=== PATIENT | male | born 1990 | race Caucasian/White ===

== ENCOUNTER 2017-05-22 14:11 | Emergency (ER) | payer SELFPAY ==
[~2017-05-22] VITALS: Ht 165.1 cm; Wt 67.0 kg
[2017-05-22 14:18] VITALS: Ht 165.1 cm; Wt 67.0 kg
[2017-05-22] MEDS ORDERED: HYDROCODONE/APAP (5/325) TAB PO ONE (15:30)
--- NOTE | 2017-05-22 16:03 | RADRPT ---
PROCEDURE: XR Lumbar Spine. CLINICAL INDICATION: Lumbar spine pain. TECHNIQUE: AP, lateral, and cone-down lateral view of the lumbar spine were obtained. COMPARISON: No prior studies are available for comparison. FINDINGS: There is a mild right convex scoliosis of the thoracolumbar junction. The vertebral body heights an d marrow density are normal in appearance. There is preservation of the intervertebral disc spaces. There is no significant facet spondylosis. The neural foramina appear patent. The paraspinal sof t tissues unremarkable. The posterior elements are unremarkable. IMPRESSION: 1. Mild right convex scoliosis of the thoracolumbar junction. 2. No evidence of fracture or significant degenerative disc disease. RPTAT: HGAS .Andrew Morton MD, MD Date Time Electronically viewed and signed by .Andrew Morton MD, on 05/22/2017 16:03 .S/
--- NOTE | 2017-05-22 16:03 | RADRPT ---
PROCEDURE: XR Hip. CLINICAL INDICATION: Left hip pain. TECHNIQUE: AP and frog lateral views of the left hip were performed. COMPARISON: None available FINDINGS: There is normal appearance of the left hip joint without significant sclerosis or joint space narrow ing. The proximal left femur is normal in appearance. There is no evidence of fracture. The aceta bulum is intact. There is no significant osteopenia. The visualized sacrum is unremarkable. The s oft tissues are normal in appearance. IMPRESSION: 1. Normal radiographs of the left hip. No evidence of fracture or dislocation. RPTAT: HGAS .Andrew Morton MD, Date Time Electronically viewed and signed by .Andrew Morton MD, on 05/22/2017 16:03 .S/
--- NOTE | 2017-05-22 16:06 | RADRPT ---
PROCEDURE: XR Femur. CLINICAL INDICATION: Left femur pain. TECHNIQUE: AP and lateral views of the left femur were performed. The images were reviewed on a BRIKA workstation. COMPARISON: None available at the time of dictation. FINDINGS: There is normal osseous mineralization and alignment. No fracture or osseous lesion is identified. T here are normal joints without evidence of arthritis or dislocation. The soft tissues are unremarkab le. There are metallic keys project over the lateral left soft tissues, slightly limiting evaluation in this region. IMPRESSION: 1. Normal radiographs of the left femur. No evidence of fracture. RPTAT: HGAS .Andrew Morton MD, MD Date Time Electronically viewed and signed by .Andrew Morton MD, MD on 05/22/2017 16:05 .S/
--- NOTE | 2017-05-22 16:06 | RADRPT ---
PROCEDURE: XR Knee. CLINICAL INDICATION: Left knee pain. TECHNIQUE: AP, lateral and tunneled views of the left knee were obtained. The images reviewed on a PACS workstation. COMPARISON: None. FINDINGS: The distal femur and proximal tibia/fibula are normal in appearance. There is no fracture. The medi al and lateral compartment joint spaces are preserved. There is no abnormal calcification. There i s no joint effusion. Hoffa's fat pad is normal in appearance. There is normal appearance of the pa tellofemoral joint. The soft tissues are unremarkable. IMPRESSION: 1. Normal radiographs of the left knee. No evidence of fracture. RPTAT: HGAS .Andrew Morton MD, Date Time Electronically viewed and signed by .Andrew Morton MD, on 05/22/2017 16:06 .S/
--- NOTE | 2017-05-22 16:07 | RADRPT ---
PROCEDURE: XR Ankle. CLINICAL INDICATION: Left ankle pain. TECHNIQUE: AP, oblique and lateral views of the left ankle were performed. COMPARISON: None available FINDINGS: The distal tibia and fibula are normal in appearance. The ankle mortise is maintained. The lateral process of the talus is intact. There is no evidence of fracture. The talus and calcaneus are nor mal in appearance. There is no plantar tendon enthesiophyte. There is no joint effusion. There is mild soft tissue swelling over the lateral ankle. IMPRESSION: 1. Mild soft tissue swelling over the lateral ankle without evidence of underlying fracture. RPTAT: HGAS .Andrew Morton MD, MD Date Time Electronically viewed and signed by .Andrew Morton MD, on 05/22/2017 16:07 .S/
[2017-05-22] MEDS ORDERED: HYDR-906 PO (17:19)
[2017-05-22] MEDS ORDERED: IBUP-1542 PO (17:19)
[2017-05-22] MEDS ORDERED: ORPH100T PO (17:20)
[2017-05-22 17:47] VITALS: BP 125/89; PULSE 89; RESP 18
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
== END 2017-05-22 17:48 | disposition home or self-care (01) ==
LOC: FTE 14:11
DX: S99.912A Unspecified injury of left ankle, initial encounter (principal); S89.92XA Unspecified injury of left lower leg, initial encounter; S39.92XA Unspecified injury of lower back, initial encounter; S79.912A Unspecified injury of left hip, initial encounter; V23.4XXA Motorcycle driver injured in collision with car, pick-up truck or van in traffic accident, initial encounter
CPT/HCPCS: 72100; 73510; 73550; 73562; 73610